=== PATIENT | female | born 1955 | race Caucasian/White ===

== ENCOUNTER → 2024-07-25 | Outpatient (CLI) | payer MEDICARE ==
[2024-07-25 19:11] LABS: Percent Saturation 40.9 % (15.0-50.0)
== END ==
LOC: LAB 17:20 → LAB SHORT 17:20
PROVIDERS: Internal Medicine Hematology & Oncology
DX: D50.8 Other iron deficiency anemias (principal)
CPT/HCPCS: 82728; 83540; 83550